=== PATIENT | female | born 1995 | race Asian ===

== ENCOUNTER 2017-08-15 19:54 | Emergency (ER) | payer OTHER ==
[~2017-08-15] VITALS: Ht 165.1 cm; Wt 69.8 kg
[2017-08-15 20:24] VITALS: Ht 165.1 cm; Wt 69.8 kg
[2017-08-15 22:03] VITALS: BP 121/64
== END 2017-08-15 22:03 | disposition home or self-care (01) ==
LOC: ED 19:54
DX: S16.1XXA Strain of muscle, fascia and tendon at neck level, initial encounter (principal); V43.62XA Car passenger injured in collision with other type car in traffic accident, initial encounter; Y93.I9 Activity, other involving external motion; Y92.89 Other specified places as the place of occurrence of the external cause; Y99.8 Other external cause status

== ENCOUNTER 2019-01-14 19:55 | Emergency (ER) | payer BC ==
[~2019-01-14] VITALS: Ht 165.1 cm; Wt 71.7 kg
[2019-01-14 20:14] VITALS: Ht 165.1 cm; Wt 71.7 kg
[2019-01-14 22:50] VITALS: BP 118/66
== END 2019-01-14 22:50 | disposition home or self-care (01) ==
LOC: ED 19:55
DX: L03.115 Cellulitis of right lower limb (principal); W57.XXXA Bitten or stung by nonvenomous insect and other nonvenomous arthropods, initial encounter; Y93.89 Activity, other specified; Y92.89 Other specified places as the place of occurrence of the external cause; Y99.8 Other external cause status
CPT/HCPCS: J0696